=== PATIENT | male | born 1965 | race Two or more races ===

== ENCOUNTER 2019-04-24 13:52 | Emergency (ER) | payer SELFPAY ==
[~2019-04-24] VITALS: Ht 188 cm; Wt 106.6 kg
[~2019-04-24 13:52] MED LIST: ASPIRIN81 MG ORAL; CRESTOR10 M1 ORAL; EFFIENT10 MG PO; HUMALOG100 UNIT/3 SUBQ; LANTUS SOL100 UNIT/1 SUBQ; METHOTREXATE2.5 M2 PO; MOBIC15 MG ORAL; PHENTERMINE PO; SOMA350 MG PO; TOPIRAMATE PO; TRICOR145 MG ORAL
--- NOTE | 2019-04-24 14:44 | Emergency Room Report ---
History of Present Illness General Chief Complaint: Pain Source: Patient Present Illness HPI Disclaimer: Please note that this report is being documented using [employer] technology. This can lead to erroneous entry secondary to incorrect interpretation by the dictating instrument. HPI: 54-year-old male with history of diabetes, CAD status post stenting, hypertension, hyperlipidemia presents for evaluation of leg pain and fevers. Symptoms began yesterday morning. No trauma was reported but he began complaining of pain in the left side of the groin that has been migrating down the left leg now settled behind the knee and into the calf. He is no longer able to ambulate because of the pain. He is noted subjective fevers over the past 24 hours. Otherwise has been in his usual state of health. Denies any recent fall or injury. Denies URI symptoms, cough, chest pain, shortness of breath, vomiting, diarrhea. Denies any rash, vesicles, skin breakdown. Does not take blood thinners. No history of DVT or PE. PMH: Hypertension, hyperlipidemia, diabetes, CAD PSH: Right hip replacement Allergies: Duloxetine, Wellbutrin Social Hx: Denies drug, alcohol or tobacco use Allergies: Coded Allergies: BUPROPION HCL (Verified Allergy, Intermediate, 12/31/12) AGITATION DULOXETINE HCL (Verified Allergy, Mild, 12/31/12) RASH Nursing Documentation-PMH Past Medical History: No History, Except For Hx Cardiac Problems: Yes - 3 stents Hx Hypertension: No Hx Pacemaker: No Hx Asthma: No Hx COPD: No Hx Diabetes: Yes - diabetic neuropathy, retinopathy Hx Cancer: No Hx Gastrointestinal Problems: No Hx Dialysis: No History Of Psychiatric Problem: No Hx Neurological Problems: Yes Hx Cerebrovascular Accident: No Hx Seizures: No Review of Systems All Other Systems: negative except mentioned in HPI Physical Exam Vital Signs Date Time Temp Pulse Resp B/P (MAP) Pulse Ox O2 Delivery O2 Flow Rate FiO2 04/24/19 14:14 99.9 112 20 123/76 (92) 93 Room Air General: Awake and alert, no acute distress, afebrile HEENT: NC/AT. EOMI. dry mucous membranes Cardiovascular: Tachycardic. S1 and S2 normal. No murmur appreciated Resp: Normal work of breathing. No cough, wheezing or crackles appreciated Abdomen: Abdomen is soft, nondistended. Nontender. No masses, no abdominal wall defect palpable in the left inguinal region. Skin: Intact. No abrasions, laceration or rash over the exposed skin. No skin breakdown, no vesicles, no erythema, no warmth. MSK: Normal tone and bulk. Moving all extremities. No obvious deformity. Significant tenderness in the popliteal fossa and over the left calf. No asymmetry. Sensations intact distally. Capillary refill is brisk. 2+ PT/DP pulses. 2+ femoral pulses. Neuro: Awake and alert. Mentating appropriately. Medical Decision Making Diagnostic Impression: Primary Impression: Microscopic hematuria Additional Impression: Leg pain ER Course This is a 54-year-old male history of CAD, hypertension, hyperlipidemia and diabetes presents for evaluation of atraumatic left lower extremity pain as well as subjective fevers. Patient is tachycardic but in no acute distress otherwise. He does have asymmetric tenderness without swelling in the left lower extremity in the popliteal fossa and over the left calf with intact distal pulses and good perfusion. Differential includes but not limited to worsening neuropathy, cellulitis, zoster, ischemia, DVT. Will start broad metabolic infectious work-up, treat with Toradol for pain, obtain a DVT study of the lower extremity. Laboratory Tests Test 04/24/19 14:55 04/24/19 15:25 White Blood Count 7.2 K/UL (4.8-10.8) Red Blood Count 4.33 M/UL (4.70-6.10) L Hemoglobin 13.4 G/DL (14.2-18.0) L Hematocrit 39.2 % (42.0-52.0) L Mean Corpuscular Volume 90 FL (80-99) Mean Corpuscular Hemoglobin 30.8 PG (27.0-31.0) Mean Corpuscular Hemoglobin Concent 34.1 G/DL (32.0-36.0) Red Cell Distribution Width 12.0 % (11.6-14.8) Platelet Count 121 K/UL (150-450) L Mean Platelet Volume 8.1 FL (6.5-10.1) Neutrophils (%) (Auto) % (45.0-75.0) Lymphocytes (%) (Auto) % (20.0-45.0) Monocytes (%) (Auto) % (1.0-10.0) Eosinophils (%) (Auto) % (0.0-3.0) Basophils (%) (Auto) % (0.0-2.0) Neutrophils % (Manual) Pending Lymphocytes % (Manual) Pending Platelet Estimate Pending Platelet Morphology Pending Prothrombin Time 10.0 SEC (9.30-11.50) Prothrombin Time INR 0.9 (0.9-1.1) PTT 33 SEC (23-33) Sodium Level 138 MMOL/L (136-145) Potassium Level 3.9 MMOL/L (3.5-5.1) Chloride Level 103 MMOL/L (98-107) Carbon Dioxide Level 25 MMOL/L (21-32) Anion Gap 10 mmol/L (5-15) Blood Urea Nitrogen 25 mg/dL (7-18) H Creatinine 1.2 MG/DL (0.55-1.30) Estimate Glomerular Filtration Rate > 60 mL/min (>60) Glucose Level 167 MG/DL (74-106) H Calcium Level 8.4 MG/DL (8.5-10.1) L Total Bilirubin 0.9 MG/DL (0.2-1.0) Aspartate Amino Transferase (AST) 17 U/L (15-37) Alanine Aminotransferase (ALT) 23 U/L (12-78) Alkaline Phosphatase 41 U/L (46-116) L Total Creatine Kinase 34 U/L (26-308) Troponin I 0.000 ng/mL (0.000-0.056) Total Protein 6.9 G/DL (6.4-8.2) Albumin 3.0 G/DL (3.4-5.0) L Globulin 3.9 g/dL Albumin/Globulin Ratio 0.8 (1.0-2.7) L Urine Color Pale yellow Urine Appearance Slightly cloudy Urine pH 5 (4.5-8.0) Urine Specific [place] 1.020 (1.005-1.035) Urine Protein 4+ (NEGATIVE) H Urine Glucose (UA) 4+ (NEGATIVE) H Urine Ketones 2+ (NEGATIVE) H Urine Blood 4+ (NEGATIVE) H Urine Nitrite Negative (NEGATIVE) Urine Bilirubin Negative (NEGATIVE) Urine Urobilinogen Normal MG/DL (0.0-1.0) Urine Leukocyte Esterase Negative (NEGATIVE) Urine RBC 15-20 /HPF (0 - 0) H Urine WBC 0-2 /HPF (0 - 0) Urine Squamous Epithelial Cells Occasional /LPF Urine Bacteria Few /HPF (NONE) Urine Mucus Moderate /LPF (NONE/OCC) H Microbiology Date/Time Source Procedure Growth Status 04/24/19 15:25 Nasal Nares - Final Complete 04/24/19 15:25 Nasal Nares - Final Complete EKG Diagnostic Results EKG Time: 15:01 Rate: tachycardiac Rhythm: NSR ST Segments: no acute changes Other Impression Sinus rhythm, normal axis, normal intervals, no ST segment changes. Inferior Q waves. Rhythm Strip Diag. Results Rhythm Strip Time: 15:01 EP Interpretation: yes Rate: 100 Rhythm: NSR, no PVC's, no ectopy CT/MRI/US Diagnostic Results CT/MRI/US Diagnostic Results : Impression Preliminary Findings Only See Final Report For Complete Findings US VENOUS LEFT LOWER EXTREMITY: No DVT Radiologist: Mihir Garcia M.D. Reevaluation Time: 16:46 Last Vital Signs Date Time Temp Pulse Resp B/P (MAP) Pulse Ox O2 Delivery O2 Flow Rate FiO2 04/24/19 14:14 99.9 112 20 123/76 (92) 93 Room Air Reevaluation Impression Lower extremity Doppler finds no evidence of DVT or other abnormalities. Labs have returned largely within normal limits aside from microscopic hematuria. The patient has no history of this. He is well-appearing and states the Toradol significantly improved his pain. He will be discharged to follow-up with his PMD on an outpatient basis to investigate the hematuria and for his leg pain. Will treat with NSAIDs which he states he has at home. Discussed reasons to return to the emergency department need for close follow-up. He understands and agrees with this treatment plan will be discharged home. Disposition: HOME, SELF-CARE Condition: Improved Donta Beal MD Apr 24, 2019 14:44
[2019-04-24] MEDS ORDERED: Ketorolac 30mg Inj IV ONE (14:45)
[2019-04-24 14:50] VITALS: BP 120/78
--- NOTE | 2019-04-24 15:00 | NUR ---
ED Nurse Note: Pt walked into ED w/ c/o L leg pain since yesterday 01/27. Pt states he's unable to move leg. ROM 2/5 L leg. Pt ext warm to touch, no erythema. Pt alert and orientedx4. Pt set up on monitor. EKG taken. Labs drawn and sent. has seen patient.
[2019-04-24 15:35] LABS: HEMATOCRIT 39.2 % (42.0-52.0); HEMOGLOBIN 13.4 G/DL (14.2-18.0); MEAN CORPUSCULAR VOLUME 90 FL (80-99); PLATELET COUNT 121 K/UL (150-450); RED BLOOD COUNT 4.33 M/UL (4.70-6.10); WHITE BLOOD COUNT 7.2 K/UL (4.8-10.8)
[2019-04-24 15:50] LABS: BILIRUBIN, URINE NEGATIVE (NEGATIVE); COLOR,URINE PALE YELLOW; GLUCOSE, URINE (UA) 4+ (NEGATIVE); KETONES,URINE 2+ (NEGATIVE); LEUKOCYTE ESTERASE ,URINE NEGATIVE (NEGATIVE); NITRITE,URINE NEGATIVE (NEGATIVE); PH,URINE 5 (4.5-8.0); PROTEIN,URINE 4+ (NEGATIVE); UROBILINOGEN,URINE NORMAL MG/DL (0.0-1.0)
[2019-04-24 15:51] LABS: INR 0.9 (0.9-1.1)
[2019-04-24 15:53] LABS: APPEARANCE,URINE SLIGHTLY CLOUDY
[2019-04-24 16:20] LABS: ANION GAP 10 mmol/L (5-15); BLOOD UREA NITROGEN 25 mg/dL (7-18); CALCIUM 8.4 MG/DL (8.5-10.1); CARBON DIOXIDE 25 MMOL/L (21-32); CHLORIDE 103 MMOL/L (98-107); CREATININE 1.2 MG/DL (0.55-1.30); POTASSIUM 3.9 MMOL/L (3.5-5.1); SODIUM 138 MMOL/L (136-145)
[2019-04-24 16:26] LABS: ALANINE AMINOTRANSFERASE 23 U/L (12-78); ALBUMIN/GLOBULIN RATIO 0.8 (1.0-2.7); ALKALINE PHOSPHATASE 41 U/L (46-116); ASPARTATE AMINO TRANSFERASE 17 U/L (15-37); BILIRUBIN,TOTAL 0.9 MG/DL (0.2-1.0); CREATINE KINASE 34 U/L (26-308)
--- NOTE | 2019-04-24 16:46 | Diagnostic Imaging Report ---
Indication: Left leg pain Technique: Grayscale and duplex images of the left lower extremity veins Comparison: none Findings: Grayscale and duplex images demonstrate no evidence of intraluminal thrombus. Normal phasic Doppler waveforms, demonstrating normal augmentation response and no evidence of valvular insufficiency. Normal compressibility Impression: Negative for evidence of left lower extremity deep venous thrombosis This agrees with the preliminary interpretation provided overnight by [facility] service.
--- NOTE | 2019-04-24 16:59 | NUR ---
ER DISCHARGE NOTE: Patient is cleared to be discharged per ERMD, pt is aox4, on room air, with stable vital signs. pt was given dc instructions, pt was able to verbalize understanding, pt id band and iv site removed without complications. pt is able to ambulate with steady gait. pt took all belongings. Pt instructed to see a paloma for leg and urine.
[2019-04-24 17:00] VITALS: BP 130/71
== END 2019-04-24 17:00 | disposition home or self-care (01) ==
LOC: EMR 15:00
DX: R31.9 Hematuria, unspecified (principal); M79.605 Pain in left leg; I11.9 Hypertensive heart disease without heart failure; I25.10 Atherosclerotic heart disease of native coronary artery without angina pectoris; E78.5 Hyperlipidemia, unspecified; E11.40 Type 2 diabetes mellitus with diabetic neuropathy, unspecified; Z95.5 Presence of coronary angioplasty implant and graft; Z88.8 Allergy status to other drugs, medicaments and biological substances; Z96.641 Presence of right artificial hip joint
CPT/HCPCS: 36415; 80053; 81003; 82550; 84484; 85007; 85025; 85610; 85730; 86710; 93005; 93971; 96361; 96374; 99284; J1885; J7030